=== PATIENT | male | born 1995 | race Caucasian/White ===

== ENCOUNTER 2024-03-04 20:12 | Emergency (ER) | payer OTHER ==
[~2024-03-04] VITALS: Ht 165.1 cm; Wt 64.0 kg
[2024-03-04 20:39] VITALS: BP 142/87; PULSE 89; RESP 18; TEMP 97.8; O2SAT 99
[2024-03-04] MEDS: LIDOCAINE HCL/PF 1% 10 MG/ML 5ML VIAL INFIL ONE (22:30)
== END 2024-03-04 23:43 | disposition home or self-care (01) ==
LOC: ER 20:12
DX: S01.01XA Laceration without foreign body of scalp, initial encounter (principal); Y08.89XA Assault by other specified means, initial encounter; Y93.89 Activity, other specified; Y92.89 Other specified places as the place of occurrence of the external cause; Y99.8 Other external cause status
CPT/HCPCS: 12001; 99282

== ENCOUNTER 2024-03-29 19:22 | Emergency (ER) | payer OTHER ==
[~2024-03-29] VITALS: Ht 165.1 cm; Wt 64.0 kg
[2024-03-29 19:31] VITALS: O2SAT 98
[2024-03-29 20:02] VITALS: BP 121/83; PULSE 100; RESP 16; TEMP 36.9; O2SAT 97
== END 2024-03-29 21:26 | disposition home or self-care (01) ==
LOC: ER 19:22
DX: S01.01XD Laceration without foreign body of scalp, subsequent encounter (principal); X58.XXXD Exposure to other specified factors, subsequent encounter
CPT/HCPCS: 99281